=== PATIENT | male | born 1975 | race Caucasian/White ===

== ENCOUNTER 2019-08-07 13:05 | Day surgery (SDC) | payer BC ==
[~2019-08-07] VITALS: Ht 176.5 cm; Wt 92.2 kg
[2019-08-07 13:36] VITALS: BP 141/83; PULSE 72; TEMP 98.3
[2019-08-07] MEDS ORDERED: ADDERALL XR25 MG PO (13:43)
[2019-08-07] MEDS ORDERED: MULTI VITAMINS1 TAB PO (13:44)
[2019-08-07] MEDS ORDERED: ALEVE 220MG220 MG PO (13:44)
[2019-08-07] MEDS ORDERED: STOOL SOFTENER100 M2 PO (13:45)
[2019-08-07] MEDS ORDERED: NEXIUM 24HR20 M1 PO (13:45)
--- NOTE | 2019-08-07 13:46 | NUR ---
DR VILLANUEVA HERE TO TALK WITH PATIENT. GUY [employer] CLINICAL MEDICAL TRANSCRIPTIONIST INTO SEE PATIENT AT BEDSIDE.
[2019-08-07] MEDS ORDERED: ROXICODONE 55 MG/TAB PO (15:37)
[2019-08-07 16:25] VITALS: BP 139/82; PULSE 55; TEMP 98
--- NOTE | 2019-08-07 16:25 | NUR ---
Pt arrived to [facility] via cart with [employer] LEAD[employer]. Pt awake, alert, and oriented. He denies nausea at this time and when asked about pain, he states "I just feel a little sore." Pt's VSS at this time, and this RN received report from [employer] LEAD[employer], Mary. Pt requested ice chips and at bedside. Call light within reach
[2019-08-07 16:33] VITALS: TEMP 98
[2019-08-07 16:40] VITALS: BP 126/86; PULSE 49
--- NOTE | 2019-08-07 16:40 | NUR ---
Pt sitting comfortably in bed in good spirits. Pt denies pain or nausea. Pt successfully up to BR with stand by assist with void. VSS and WNL.
[2019-08-07 16:55] VITALS: BP 129/75; PULSE 53
--- NOTE | 2019-08-07 16:55 | NUR ---
Pt sitting comfortably in bed. He reports 3-4/10 for pain/soreness in right incision area. Dressings are clean, dry, and intact and there is no exudate or redness at sight. Denies nausea and successfully finished bob crackers.
--- NOTE | 2019-08-07 17:00 | NUR ---
Sprite and crackers brought to pt per request. He was able to eat and drink without c/o n/v.
[2019-08-07 17:10] VITALS: BP 106/55; BP 122/62; PULSE 66; PULSE 67
--- NOTE | 2019-08-07 17:28 | NUR ---
Pt sitting comfortably in bed, and he reports that he feels well enough to go home.
--- NOTE | 2019-08-07 17:29 | NUR ---
Pt meets criteria for discharge. Reviewed discharge information with pt and including educational packet. Gave prescription Roxicodone to patient to bring to pharmacy. Pt and had no further questions, and they expressed understanding of the information as well as who to call if concerns/questions arose. Pt discharged via wc to private car with this RN.
== END 2019-08-07 17:30 | disposition home or self-care (01) ==
LOC: SDCO 13:05
DX: K40.90 Unilateral inguinal hernia, without obstruction or gangrene, not specified as recurrent (principal); K21.9 Gastro-esophageal reflux disease without esophagitis; Z80.0 Family history of malignant neoplasm of digestive organs; Z80.3 Family history of malignant neoplasm of breast; Z80.42 Family history of malignant neoplasm of prostate
CPT/HCPCS: C1781; J0690; J1885; J2250; J2704; J3010; J7120

== ENCOUNTER 2020-08-08 12:21 | Day surgery (SDC) | payer BC ==
[~2020-08-08] VITALS: Ht 177.8 cm; Wt 93.2 kg
[~2020-08-08 12:21] MED LIST: ADDERALL XR25 MG PO; ALEVE 220MG220 MG PO; NEXIUM 40MG40 MG PO; ONE-A-DAY ESSE1 EACH PO; ROXICODONE 55 MG/TAB PO; STOOL SOFTENER100 M2 PO
[2020-08-08] MEDS ORDERED: TYLENOL 500MG500 MG PO (13:21)
--- NOTE | 2020-08-08 15:37 | NUR ---
Patient arrives back to PACU/SDC room drowsy. Patient monitor applied, vitals stable. CERAMIC TILE INSTALLER reports to only treat patient's blood pressure if systolic pressure gets over 180mmHg. Patient given warm blanket, left foot elevated and ice pack applied. Patient resting comfortably.
[2020-08-08 15:50] VITALS: BP 121/92; PULSE 72; TEMP 96.6
[2020-08-08] MEDS ORDERED: ASPIRIN 32325 MG/TAB PO (15:52)
--- NOTE | 2020-08-08 16:00 | NUR ---
Patient resting comfortably in bed, vitals stable, more awake. Patient given ice chips.
[2020-08-08 16:05] VITALS: BP 121/88; PULSE 67
[2020-08-08 16:20] VITALS: PULSE 71
--- NOTE | 2020-08-08 16:30 | NUR ---
Patient denies having any pain or nausea, vitals stable. Patient given crackers and coffee.
[2020-08-08 16:35] VITALS: BP 128/99; PULSE 72
[2020-08-08 16:37] VITALS: BP 138/95; PULSE 60
--- NOTE | 2020-08-08 16:45 | NUR ---
Patient reports he feels good, vitals stable, and states he would like to go home. Patient tolerated food/drink without any nausea.
--- NOTE | 2020-08-08 17:00 | NUR ---
Dismissal instructions gone over with patient. Patient voices understanding and all questions answered.
--- NOTE | 2020-08-08 17:15 | NUR ---
Patient discharged to private vehicle patient's friend is driving at patient enterance via wheelchair without any complications. Patient leaves thanking staff for services.
[2020-08-08 17:59] VITALS: BP 143/107; PULSE 78; TEMP 99.2
== END 2020-08-08 17:15 | disposition home or self-care (01) ==
LOC: SDCO 12:21
DX: S92.352A Displaced fracture of fifth metatarsal bone, left foot, initial encounter for closed fracture (principal); Z20.828 Contact with and (suspected) exposure to other viral communicable diseases; S86.312A Strain of muscle(s) and tendon(s) of peroneal muscle group at lower leg level, left leg, initial encounter; Z79.82 Long term (current) use of aspirin; K21.9 Gastro-esophageal reflux disease without esophagitis; F90.9 Attention-deficit hyperactivity disorder, unspecified type; M19.90 Unspecified osteoarthritis, unspecified site
CPT/HCPCS: J0690; J1100; J1885; J2250; J2405; J2704; J2795; J3010; J7120